=== PATIENT | male | born 1980 | race Caucasian/White ===

== ENCOUNTER 2025-03-27 11:58 | Emergency (ER) | payer MEDICAID ==
[~2025-03-27] VITALS: Ht 175.3 cm; Wt 98.0 kg
[2025-03-27 12:32] VITALS: BP 119/74; PULSE 58; RESP 18; TEMP 98.5; O2SAT 98
--- NOTE | 2025-03-27 12:48 | Physician Documentation ---
History of Present Illness ~ Chief Complaint: Hand pain Stated Complaint: HAND INFECTION HPI Patient is a 44-year-old male that presents to the emergency department for evaluation of right hand swelling. Patient reports that he was seen at [facility] underwent diagnostics imaging and consultation. Patient reports that he left due to taking too long. Explained to patient that he does not need to be seen we recommend that he stay and have additional laboratory diagnostics and imaging done here as we are unable to evaluate what another ER did. It was explained to the patient that he would need to wait to be checked back in. Patient reported that he does not want to wait. We then told the patient that it is imperative that he be seen was the infection could cause him to become very sick any has significant swelling in the right hand. Patient said it has been seen I do not want to wait. Patient decided to leave the emergency department against medical advice. Medication Reconciliation Allergies: Coded Allergies: No Known Allergies (Unverified , 03/27/25) Physical Exam Vital Signs: Temperature: 98.5, Heart Rate: 58, Respiratory Rate: 18, BP: 119/74, Pulse Oximetry: 98, Weight: 98.000 Oxygen Flow Rate: 0 Progress Results/Orders Results/Orders Vital Signs 03/27/25 12:32 Temp 98.5 Pulse 58 Resp 18 B/P (MAP) 119/74 Pulse Ox 98 O2 Flow Rate 0 Departure Referrals: NO PRIMARY CARE PROVIDER (PCP) SANAZ SAUNDERS Mar 27, 2025 12:48
== END 2025-03-27 13:10 | disposition left against medical advice (07) ==
LOC: ER 12:00
DX: L08.9 Local infection of the skin and subcutaneous tissue, unspecified (principal)
CPT/HCPCS: 99281; 99282